=== PATIENT | female | born 1950 | race Caucasian/White ===

== ENCOUNTER → 2016-10-01 | Outpatient (CLI) | payer OTHER ==
--- NOTE | 2016-10-01 13:36 | DX ---
Chest, PA and Lateral History: Cough and vertigo Comparison: December 25, 2014 Findings: Lungs are clear, without infiltrate or consolidation. Heart size is normal. There is a stab le calcified granuloma at the lateral right lung base. There is no adenopathy or mass lesion. There i s no pleural effusion or pneumothorax. Bones are unremarkable for age. There are 3 stable left breast biopsy clips. Impression: Stable. No pneumonia or cardiomegaly.
== END ==
LOC: CIMAGING 12:52
PROVIDERS: ATTEND Family Medicine
DX: R05 Cough (principal); R42 Dizziness and giddiness
CPT/HCPCS: 71020-PO

== ENCOUNTER → 2016-10-22 | Outpatient (CLI) | payer OTHER | LOC: FIMAGING 12:56 | PROVIDERS: ATTEND Surgery | DX: R07.89 Other chest pain (principal) ==

== ENCOUNTER → 2016-10-22 | Outpatient (CLI) | payer OTHER ==
--- NOTE | 2016-10-22 12:40 | CPEKG ---
Heart Rate: 82 RR Interval: 732 P-R Interval: 148 QRSD Interval: 78 QT Interval: 388 QTC Interval: 453 P [place]: 77 QRS [place]: 72 T Wave [place]: 9 EKG Severity - NORMAL ECG - EKG Impression: SINUS RHYTHM Electronically Signed By: Markell Shah 22-Oct-2016 14:57:26
== END ==
LOC: FCP 12:20
PROVIDERS: ATTEND Surgery
DX: R07.9 Chest pain, unspecified (principal)

== ENCOUNTER → 2017-06-09 | Outpatient (CLI) | payer OTHER | LOC: FIMAGING 09:44 | PROVIDERS: ATTEND Family Medicine | DX: Z13.820 Encounter for screening for osteoporosis (principal); Z78.0 Asymptomatic menopausal state ==

== ENCOUNTER → 2017-07-13 | Outpatient (CLI) | payer OTHER | LOC: CIMAGING 14:12 | PROVIDERS: ATTEND Family Medicine | DX: Z12.31 Encounter for screening mammogram for malignant neoplasm of breast (principal) | CPT/HCPCS: G0202 ==

== ENCOUNTER → 2018-07-28 | Outpatient (CLI) | payer OTHER | LOC: CIMAGING 09:51 | PROVIDERS: ATTEND Family Medicine | DX: Z12.31 Encounter for screening mammogram for malignant neoplasm of breast (principal) ==

== ENCOUNTER → 2018-09-12 | Outpatient (CLI) | payer OTHER | LOC: BHLMT 14:45 | PROVIDERS: ATTEND Nurse Practitioner Family | DX: I73.9 Peripheral vascular disease, unspecified (principal); I25.10 Atherosclerotic heart disease of native coronary artery without angina pectoris; I10 Essential (primary) hypertension; E78.5 Hyperlipidemia, unspecified | CPT/HCPCS: 93005-PO ==